=== PATIENT | female | born 1995 | race Caucasian/White ===

== ENCOUNTER 2024-01-19 20:41 | Inpatient (IN) | payer BC ==
[~2024-01-19 20:41] MED LIST: Lidocaine 1% 10 ML MDV ONE
[2024-01-19] MEDS ORDERED: Ondansetron 4 MG/2 ML SDV IVPUSH PRN (21:01)
[2024-01-19] MEDS ORDERED: Lidocaine 1% 50 ML MDV INJECT PRN (21:01)
[2024-01-19] MEDS ORDERED: Nalbuphine HCl 10 MG/ 1ML Amp IVPUSH PRN (21:01)
[2024-01-19] MEDS ORDERED: Sodium Chloride 0.9% 10 ML Syringe FLUSH PRN (21:01)
[2024-01-19 21:24] LABS: BASOPHILS ABSOLUTE AUTO 0.1 K/mm3 (0.0-0.2); BASOPHILS PERCENT AUTO 0.4 % (0.0-1.0); EOSINOPHILS ABSOLUTE AUTO 0.1 K/mm3 (0.0-0.4); EOSINOPHILS PERCENT AUTO 0.5 % (0.0-6.0); HEMATOCRIT 41.3 % (37.0-47.0); IMMATURE GRAN ABSOLUTE AUTO 0.18 K/mm3 (0.00-0.05); LYMPHOCYTES ABSOLUTE AUTO 2.7 K/mm3 (1.0-4.8); LYMPHOCYTES PERCENT AUTO 15.6 % (24.0-44.0); MEAN CORPUSCULAR HEMOGLOBIN 28.6 pg (28.0-32.0); MEAN CORPUSCULAR HGB CONC 33.9 g/dl (32.0-36.0); MEAN CORPUSCULAR VOLUME 84.5 fl (83.0-99.0); MEAN PLATELET VOLUME 9.2 fl (9.4-12.3); MONOCYTES ABSOLUTE AUTO 1.1 K/mm3 (0.0-0.8); MONOCYTES PERCENT AUTO 6.2 % (0.0-8.0); NEUTROPHILS ABSOLUTE AUTO 13.1 K/mm3 (1.8-7.7); NEUTROPHILS PERCENT AUTO 76.3 % (41.0-71.0); PLATELET COUNT,PLT 287 K/mm3 (150-400); RED BLOOD CELL COUNT 4.89 M/mm3 (4.10-5.30); WHITE BLOOD CELL COUNT,WBC 17.17 K/mm3 (3.9-11.3)
[2024-01-19] MEDS: Lactated Ringers 1,000 ML IV SCH (21:29)
[2024-01-19] MEDS ORDERED: ePHEDrine 50 MG/ML SDV IVPUSH PRN (21:48)
[2024-01-19] MEDS ORDERED: diphenhydrAMINE 50 MG/ML SDV IVPUSH PRN (21:48)
[2024-01-19] MEDS ORDERED: Bupivacaine/fentaNYL/NS 100 ML Bag EPIDUR PRN (21:48)
[2024-01-19 22:03] LABS: ANION GAP 15.3 (5-15); CREATININE 0.7 mg/dL (0.55-1.02); POTASSIUM,K 3.3 mEq/L (3.5-5.1)
[2024-01-19 22:04] LABS: A/G RATIO 0.6 (1-2); ALBUMIN 2.6 g/dl (3.4-5.0); BILIRUBIN TOTAL 0.3 mg/dL (0.2-1.0); CALCIUM 9.1 mg/dL (8.5-10.1); EST CRCL DRUG DOSING (CG) 86.71 mL/min; PROTEIN TOTAL,TP 6.9 g/dl (6.4-8.2)
[2024-01-19] MEDS: fentaNYL 100 MCG/2 ML SDV EPIDUR PRN (22:31)
[2024-01-20 00:21] LABS: PROTEIN,URINE RANDOM < 6.0 mg/dL (0.0-11.8)
[2024-01-20] MEDS: Calcium Carbonate 500 MG Tab.Chew PO PRN (00:35)
[2024-01-20] MEDS: Oxytocin/Lactated Ringers 30 UNIT/500 ML BAG IV SCH (06:15)
[2024-01-20] MEDS ORDERED: Magnesium Hydroxide 400 MG/5 ML Susp 30 ML Cup PO PRN (06:43)
[2024-01-20] MEDS ORDERED: Docusate Sodium 100 MG Cap PO PRN (06:43)
[2024-01-20] MEDS ORDERED: Acetaminophen 325 MG Tab PO PRN (06:43)
[2024-01-20] MEDS ORDERED: Hydrocortisone Acetate 25 MG Supp RECTAL PRN (06:43)
[2024-01-20] MEDS ORDERED: Oxytocin/Lactated Ringers 30 UNIT/500 ML BAG IV SCH (06:45)
[2024-01-20] MEDS: Benzocaine/Menthol 20%-0.5% Spray 78 GM Cannister TOP PRN (07:59)
[2024-01-20] MEDS: Witch Hazel Medicated Pads 40/Jar TOP PRN (08:00)
[2024-01-20] MEDS ORDERED: Sodium Chloride 0.9% 10 ML Syringe FLUSH SCH (09:00)
[2024-01-20] MEDS: Ibuprofen 600 MG Tab PO PRN (09:50)
[2024-01-20] MEDS: Prenatal Multivitamin with Calcium/Folic Acid/Iron Tab PO SCH (09:52)
[2024-01-20] MEDS: FLUoxetine 20 MG Cap PO SCH (23:04)
== END 2024-01-21 10:51 | disposition home or self-care (01) | DRG 560 ==
LOC: JD.OBCHECK 20:41 → JD.OB 20:46 → OBSVTOIN 01-20 06:12 → JD.OB 01-20 06:13
PROVIDERS: ADMIT Obstetrics & Gynecology; ATTEND Obstetrics & Gynecology
PROC: 10E0XZZ Delivery of Products of Conception, External Approach (ICD-10-PCS; principal; 2024-01-20)
PROC: 3E0R3BZ Introduction of Anesthetic Agent into Spinal Canal, Percutaneous Approach (ICD-10-PCS; 2024-01-20)
PROC: 00HU33Z Insertion of Infusion Device into Spinal Canal, Percutaneous Approach (ICD-10-PCS; 2024-01-20)
DX: O48.0 Post-term pregnancy (principal); Z37.0 Single live birth; O42.02 Full-term premature rupture of membranes, onset of labor within 24 hours of rupture; O99.344 Other mental disorders complicating childbirth; F41.9 Anxiety disorder, unspecified; O77.0 Labor and delivery complicated by meconium in amniotic fluid; O26.893 Other specified pregnancy related conditions, third trimester; O99.62 Diseases of the digestive system complicating childbirth; K21.9 Gastro-esophageal reflux disease without esophagitis; O69.81X0 Labor and delivery complicated by cord around neck, without compression, not applicable or unspecified; O70.0 First degree perineal laceration during delivery; Z3A.40 40 weeks gestation of pregnancy; Z90.89 Acquired absence of other organs; Z67.11 Type A blood, Rh negative
CPT/HCPCS: 36415; 51702; 59025; 59409; 80053; 82570; 83615; 84156; 85025; 86592; 86850; 86900; 86901; A9270-GY; J3010; J3490; J7120; J7999